=== PATIENT | male | born 1980 | race Caucasian/White ===

== ENCOUNTER 2018-08-12 20:47 | Emergency (ER) | payer OTHER ==
[2018-08-12 21:31] LABS: Absolute Lymphocytes (CBC) 0.4 K/uL (0.7-4.9); Absolute Monocytes 0.4 K/uL (0.1-1.3); Absolute Neutrophil 10.8 K/uL (1.8-8.0); Basophils % 0.2 % (0-1.3); Eosinophils % 0.1 % (0-4.4); Hematocrit 48.9 % (39.6-49.0); Lymphocytes % 3.1 % (15.3-44.8); MPV 8.5 fL (7.6-11.3); Monocytes % 3.8 % (3.3-12.3); RBC Red Blood Cell Count 5.71 M/uL (4.33-5.43)
[2018-08-12] MEDS ORDERED: NA CHLORIDE 0.9% 1,000 ML ONE (21:42)
[2018-08-12] MEDS ORDERED: ONDANSETRON 4 MG/2 ML VIAL ONE (21:42)
[2018-08-12] MEDS ORDERED: FAMOTIDINE 20 MG/2 ML VIAL IV ONE (21:42)
[2018-08-12] MEDS ORDERED: FENTANYL CITR 100 MCG/2 ML ONE (21:42)
[2018-08-12 21:50] LABS: Albumin 4.3 g/dL (3.4-5.0); Bilirubin Direct 0.3 mg/dL (0-0.2); Bilirubin Total 1.4 mg/dL (0.2-1.0); Potassium 3.7 mmol/L (3.5-5.1); Protein, Total 7.9 g/dL (6.4-8.2)
[2018-08-12 22:10] LABS: Blood Morphology Comment NOT SEEN (NOT SEEN); Platelet Estimate ADEQ; Urine White Blood Cell Casts OK
[2018-08-12 23:33] LABS: Barbiturates NEGATIVE (NEGATIVE); Benzodiazepines NEGATIVE (NEGATIVE); Cocaine NEGATIVE (NEGATIVE); METHAMPHETAM NEGATIVE (NEGATIVE); Methadone NEGATIVE (NEGATIVE); Opiates NEGATIVE (NEGATIVE); Phencyclidine NEGATIVE (NEGATIVE); THC Cannibis NEGATIVE (NEGATIVE)
[2018-08-12 23:41] LABS: Urine Blood NEGATIVE (NEG); Urine Glucose NEGATIVE (NEG); Urine Protein 1+ (NEG)
--- NOTE | 2018-08-13 00:39 | ER ---
Nurse's Notes [facility] Name: Vamsi Romero Age: 38 yrs Sex: Male : 1980 Arrival Date: 08/12/2018 Time: 20:50 Bed 14 Private MD: Diagnosis: Nausea and vomiting;Diarrhea, unspecified;Dehydration Presentation: 08/12 21:00 Presenting complaint: Patient states: I started having abdominal pain today around 10 jb4 am, then had body aches, nausea, vomiting, and diarrhea. 21:00 Transition of care: patient was not received from another setting of care. Onset of jb4 symptoms was August 12, 2018. Risk Assessment: Do you want to hurt yourself or someone else? Patient reports no desire to harm self or others. Initial Sepsis Screen: Does the patient meet any 2 criteria? HR > 90 bpm. Yes Does the patient have a suspected source of infection? Yes: Acute abdominal pain. Care prior to arrival: None. 21:00 Method Of Arrival: Ambulatory jb4 21:00 Acuity: ALEX 3 jb4 Historical: - Allergies: 21:00 Penicillins; jb4 21:00 Flumadine; jb4 - Home Meds: 21:00 Aciphex 20 mg Oral TbEC [Active]; jb4 - PMHx: 21:00 Hernia; stomach ulcers; jb4 - PSHx: 21:00 polyp removal; back; left shoulder; jb4 - Immunization history:: Adult Immunizations up to date. - Social history:: Smoking status: Patient/guardian denies using tobacco, Patient uses alcohol, but reports only rare drinking. - Ebola Screening: : No symptoms or risks identified at this time. Screenin:00 Abuse screen: Denies threats or abuse. Nutritional screening: No deficits noted. jb4 Tuberculosis screening: No symptoms or risk factors identified. Fall Risk None identified. Assessment: 21:00 General: Appears in no apparent distress. uncomfortable, Behavior is calm, cooperative, jb4 appropriate for age. Pain: Complains of pain in epigastric area, right upper quadrant and left upper quadrant Pain does not radiate. Pain currently is 10 out of 10 on a pain scale. Quality of pain is described as stabbing, Pain began 10 am. Neuro: Level of Consciousness is awake, alert, obeys commands, Oriented to person, place, time, situation. Cardiovascular: Patient's skin is warm and dry. Respiratory: Airway is patent Respiratory effort is even, unlabored, Respiratory pattern is regular, symmetrical. GI: Abdomen is flat, Bowel sounds present X 4 quads. Abd is soft X 4 quads Abd is non tender in umbilical area, suprapubic area, right lower quadrant and left lower quadrant Abdomen is tender to palpation in epigastric area, right upper quadrant and left upper quadrant Reports diarrhea, nausea, vomiting. : No signs and/or symptoms were reported regarding the genitourinary system. EENT: No signs and/or symptoms were reported regarding the EENT system. Derm: Skin is intact, Skin is pink, warm \T\ dry. Musculoskeletal: Circulation, motion, and sensation intact. 22:30 Reassessment: Patient appears in no apparent distress at this time. Patient and/or jb4 family updated on plan of care and expected duration. Pain level reassessed. Patient is alert, oriented x 3, equal unlabored respirations, skin warm/dry/pink. Patient states feeling better. 23:30 Reassessment: Patient appears in no apparent distress at this time. Patient and/or jb4 family updated on plan of care and expected duration. Pain level reassessed. Patient is alert, oriented x 3, equal unlabored respirations, skin warm/dry/pink. Patient states feeling better. 08/13 00:30 Reassessment: Patient appears in no apparent distress at this time. Patient and/or jb4 family updated on plan of care and expected duration. Pain level reassessed. Patient is alert, oriented x 3, equal unlabored respirations, skin warm/dry/pink. Patient states feeling better. Patient states symptoms have improved. 00:48 Reassessment: Pt waiting for IV fluids prior to discharge. jb4 01:42 Reassessment: Patient appears in no apparent distress at this time. Patient and/or jb4 family updated on plan of care and expected duration. Pain level reassessed. Patient is alert, oriented x 3, equal unlabored respirations, skin warm/dry/pink. Patient states feeling better. Patient states symptoms have improved. Vital Signs: 08/12 21:00 BP 99 / 88; Pulse 100; Resp 16; Temp 99.0(O); Pulse Ox 100% on R/A; Weight 79.38 kg jb4 (R); Height 6 ft. 1 in. (185.42 cm) (R); Pain 10/10; 22:30 BP 121 / 80; Pulse 93; Resp 16; Pulse Ox 98% on R/A; jb4 23:00 BP 121 / 80; Pulse 96; Resp 16; Pulse Ox 97% on R/A; jb4 08/13 00:30 BP 120 / 73; Pulse 89; Resp 16; Pulse Ox 99% on R/A; mt 01:42 BP 120 / 81; Pulse 76; Resp 16; Pulse Ox 98% on R/A; jb4 08/12 21:00 Body Mass Index 23.09 (79.38 kg, 185.42 cm) jb4 ED Course: 08/12 20:50 Patient arrived in ED. ss4 21:00 Vitaliy Stokes PA is PHCP. cp 21:00 Giorgi Porter MD is Attending Physician. cp 21:00 Arm band placed on right wrist. jb4 21:00 Patient has correct armband on for positive identification. Placed in gown. Bed in low jb4 position. Call light in reach. Side rails up X 1. Pulse ox on. NIBP on. 21:04 Vamsi Bass, RN is Primary Nurse. jb4 21:06 Triage completed. jb4 21:23 Inserted saline lock: 20 gauge in right antecubital area, using aseptic technique. mt Blood collected. 23:47 CT Abd/Pelvis - W/Contrast In Process Unspecified. EDMS 08/13 00:28 Patient drinking water, tolerated well. mt 01:44 No provider procedures requiring assistance completed. IV discontinued, intact, jb4 bleeding controlled, No redness/swelling at site. Administered Medications: 08/12 21:35 Drug: Zofran 4 mg Route: IVP; Site: right antecubital; jb4 22:00 Follow up: Response: No adverse reaction; Nausea is decreased jb4 21:37 Drug: Pepcid 20 mg Route: IVP; Site: right antecubital; jb4 22:00 Follow up: Response: No adverse reaction jb4 21:38 Drug: fentaNYL (PF) 25 mcg Route: IVP; Site: right antecubital; jb4 22:00 Follow up: Response: No adverse reaction; Pain is decreased jb4 21:39 Drug: NS 0.9% 1000 ml Route: IV; Rate: 1 bolus; Site: right antecubital; jb4 23:00 Follow up: Response: No adverse reaction; IV Status: Completed infusion; IV Intake: jb4 1000ml 08/13 00:42 Drug: NS 0.9% 1000 ml Route: IV; Rate: 1 bolus; Site: right antecubital; jb4 01:42 Follow up: Response: No adverse reaction; IV Status: Completed infusion; IV Intake: jb4 1000ml Intake: 08/12 23:00 IV: 1000ml; Total: 1000ml. jb4 08/13 01:42 IV: 1000ml; Total: 2000ml. jb4 Outcome: 00:37 Discharge ordered by MD. cp 01:44 Discharged to home ambulatory, with family. jb4 01:44 Condition: stable 01:44 Discharge instructions given to patient, family, Instructed on discharge instructions, follow up and referral plans. medication usage, Demonstrated understanding of instructions, follow-up care, medications, Prescriptions given X 2. 01:45 Patient left the ED. jb4 Signatures: Dispatcher [employer] EDMS Vitaliy Stokes PA PA cp Bryson, James, RN RN jb4 Adithya, Saira Pichardo mt4 Corrections: (The following items were deleted from the chart) 08/12 21:15 21:00 BP 99 / 8; Pulse 100bpm; Resp 16bpm; Pulse Ox 100% RA; Temp 99.0F Oral; 79.38 kg jb4 Reported; Height 6 ft. 1 in. Reported; BMI: 23.0; Pain 10/10; jb4
--- NOTE | 2018-08-13 00:39 | EDPHYS ---
Physician Documentation [facility] Name: Vamsi Romero Age: 38 yrs Sex: Male : 1980 Arrival Date: 08/12/2018 Time: 20:50 Bed 14 Private MD: ED Physician Giorgi Porter HPI: 08/12 21:15 This 38 yrs old Male presents to ER via Ambulatory with complaints of cp Abdominal Pain, Rash. 21:15 The patient presents with abdominal pain that is diffuse. Onset: The symptoms/episode cp began/occurred this morning. Associated signs and symptoms: Pertinent positives: nausea, vomiting, and diarrhea, Pertinent negatives: blood in stools, chest pain, constipation, dysuria, fever, testicular pain, vomiting blood. Severity of pain: in the emergency department the pain is unchanged despite home interventions. Historical: - Allergies: 21:00 Penicillins; jb4 21:00 Flumadine; jb4 - Home Meds: 21:00 Aciphex 20 mg Oral TbEC [Active]; jb4 - PMHx: 21:00 Hernia; stomach ulcers; jb4 - PSHx: 21:00 polyp removal; back; left shoulder; jb4 - Immunization history:: Adult Immunizations up to date. - Social history:: Smoking status: Patient/guardian denies using tobacco, Patient uses alcohol, but reports only rare drinking. - Ebola Screening: : No symptoms or risks identified at this time. ROS: 21:25 Constitutional: Negative for body aches, chills, fever. cp 21:25 Eyes: Negative for injury, pain, redness, and discharge. cp 21:25 ENT: Negative for drainage from ear(s), ear pain, sore throat, difficulty swallowing, difficulty handling secretions. 21:25 Cardiovascular: Negative for chest pain. 21:25 Respiratory: Negative for cough, shortness of breath, wheezing. 21:25 Abdomen/GI: Positive for abdominal pain, nausea, vomiting, and diarrhea, Negative for constipation, hematemesis, black/tarry stool, rectal bleeding. 21:25 Skin: Negative for rash. 21:25 Neuro: Negative for altered mental status, headache, weakness. 21:25 All other systems are negative. Exam: 21:30 Constitutional: The patient appears in no acute distress, alert, awake, cp non-diaphoretic, non-toxic, well developed, well nourished. 21:30 Head/Face: Normocephalic, atraumatic. cp 21:30 Eyes: Periorbital structures: appear normal, Conjunctiva: normal, no exudate, no injection, Sclera: no appreciated abnormality, Lids and lashes: appear normal, bilaterally. 21:30 ENT: External ear(s): are unremarkable, Ear canal(s): are normal, clear, TM's: bulging, is not appreciated, bilaterally, dullness, bilaterally, erythema, is not appreciated, bilaterally, Nose: is normal, Mouth: Lips: moist, Oral mucosa: pink and intact, moist, Posterior pharynx: is normal, airway is patent, no erythema, no exudate. 21:30 Neck: ROM/movement: is normal, is supple, without pain, no range of motions limitations, no nuchal rigidity. 21:30 Chest/axilla: Inspection: normal, Palpation: is normal, no crepitus, no tenderness. 21:30 Cardiovascular: Rate: tachycardic, Rhythm: regular. 21:30 Respiratory: the patient does not display signs of respiratory distress, Respirations: normal, no use of accessory muscles, no retractions, no splinting, no tachypnea, labored breathing, is not present, Breath sounds: are clear throughout, no decreased breath sounds, no stridor, no wheezing. 21:30 Abdomen/GI: Inspection: abdomen appears normal, Bowel sounds: active, all quadrants, Palpation: soft, in all quadrants, moderate abdominal tenderness, in all quadrants, rebound tenderness, is not appreciated, voluntary guarding, is elicited in all quadrants, involuntary guarding, is not appreciated. 21:30 Back: pain, is absent, ROM is normal. 21:30 Skin: no rash present. 21:30 Neuro: Orientation: to person, place \T\ time. Mentation: is normal. Vital Signs: 21:00 BP 99 / 88; Pulse 100; Resp 16; Temp 99.0(O); Pulse Ox 100% on R/A; Weight 79.38 kg jb4 (R); Height 6 ft. 1 in. (185.42 cm) (R); Pain 10/10; 22:30 BP 121 / 80; Pulse 93; Resp 16; Pulse Ox 98% on R/A; jb4 23:00 BP 121 / 80; Pulse 96; Resp 16; Pulse Ox 97% on R/A; [facility] 08/13 00:30 BP 120 / 73; Pulse 89; Resp 16; Pulse Ox 99% on R/A; wi 01:42 BP 120 / 81; Pulse 76; Resp 16; Pulse Ox 98% on R/A; [facility] 08/12 21:00 Body Mass Index 23.09 (79.38 kg, 185.42 cm) [facility] MDM: 08/12 21:00 Patient medically screened. 08/13 00:00 Differential diagnosis: appendicitis, bowel obstruction, diverticulitis, gastritis, GI cp Bleed, pancreatitis, Peptic Ulcer Disease, Perf. Duodenal Ulcer, Perf. Gastric Ulcer. 00:35 Data reviewed: vital signs, nurses notes, lab test result(s), radiologic studies, CT cp scan, and as a result, I will discharge patient. 00:35 Counseling: I had a detailed discussion with the patient and/or guardian regarding: the cp historical points, exam findings, and any diagnostic results supporting the discharge/admit diagnosis, lab results, radiology results, to return to the emergency department if symptoms worsen or persist or if there are any questions or concerns that arise at home. Response to treatment: the patient's symptoms have markedly improved after treatment, and as a result, I will discharge patient. 08/12 21:11 Order name: Basic Metabolic Panel; Complete Time: 23:10 08/12 21:11 Order name: CBC with Diff; Complete Time: 23:10 08/12 21:11 Order name: Creatinine for Radiology; Complete Time: 23:10 08/12 21:11 Order name: Hepatic Function; Complete Time: 23:10 08/13 00:38 Interpretation: Normal except: AST 82; ALT 171; BILIT 1.4; BILID 0.3; GLOB 3.6. 08/12 21:11 Order name: Lipase; Complete Time: 23:10 08/12 21:15 Order name: UDS; Complete Time: 00:07 08/12 21:15 Order name: Magnesium; Complete Time: 23:10 08/12 21:39 Order name: CBC Smear Scan; Complete Time: 23:10 EDMS 08/12 21:39 Order name: CT Abd/Pelvis - W/Contrast 08/12 23:21 Order name: Urine Dipstick--Ancillary (enter results); Complete Time: 00:07 mw2 08/12 21:11 Order name: IV Saline Lock; Complete Time: 21:24 cp 08/12 21:11 Order name: Labs collected and sent; Complete Time: 21:24 cp 08/12 21:11 Order name: Urine Dipstick-Ancillary (obtain specimen); Complete Time: 00:28 cp 08/13 00:25 Order name: PO challenge; Complete Time: 00:27 cp Administered Medications: 08/12 21:35 Drug: Zofran 4 mg Route: IVP; Site: right antecubital; jb4 22:00 Follow up: Response: No adverse reaction; Nausea is decreased jb4 21:37 Drug: Pepcid 20 mg Route: IVP; Site: right antecubital; jb4 22:00 Follow up: Response: No adverse reaction jb4 21:38 Drug: fentaNYL (PF) 25 mcg Route: IVP; Site: right antecubital; jb4 22:00 Follow up: Response: No adverse reaction; Pain is decreased jb4 21:39 Drug: NS 0.9% 1000 ml Route: IV; Rate: 1 bolus; Site: right antecubital; jb4 23:00 Follow up: Response: No adverse reaction; IV Status: Completed infusion; IV Intake: jb4 1000ml 08/13 00:42 Drug: NS 0.9% 1000 ml Route: IV; Rate: 1 bolus; Site: right antecubital; jb4 01:42 Follow up: Response: No adverse reaction; IV Status: Completed infusion; IV Intake: jb4 1000ml Disposition: 19:41 Co-signature as Attending Physician, Giorgi Porter MD. Disposition: 08/13/18 00:37 Discharged to Home. Impression: Nausea and vomiting, Diarrhea, unspecified, Dehydration. - Condition is Stable. - Discharge Instructions: Food Choices to Help Relieve Diarrhea, Adult, Dehydration, Adult, Diarrhea, Adult, Nausea and Vomiting, Adult. - Prescriptions for Bentyl 20 mg Oral Tablet - take 1 tablet by ORAL route every 6 hours As needed; 20 tablet. Zofran 4 mg Oral Tablet - take 1 tablet by ORAL route every 12 hours As needed; 20 tablet. - Medication Reconciliation Form, Thank You Letter, Antibiotic Education, Prescription Opioid Use form. - Follow up: Private Physician; When: 2 - 3 days; Reason: Recheck today's complaints. - Problem is new. - Symptoms have improved. Signatures: Dispatcher [employer] EDMS Vitaliy Stokes PA PA cp Vamsi Bass RN RN jb4 Giorgi Porter MD MD gs Corrections: (The following items were deleted from the chart) 00:39 00:37 08/13/2018 00:37 Discharged to Home. Impression: Nausea and vomiting; Diarrhea, cp unspecified. Condition is Stable. Forms are Medication Reconciliation Form, Thank You Letter, Antibiotic Education, Prescription Opioid Use. Follow up: Private Physician; When: 2 - 3 days; Reason: Recheck today's complaints. Problem is new. Symptoms have improved. cp 01:45 00:39 08/13/2018 00:37 Discharged to Home. Impression: Nausea and vomiting; Diarrhea, jb4 unspecified; Dehydration. Condition is Stable. Forms are Medication Reconciliation Form, Thank You Letter, Antibiotic Education, Prescription Opioid Use. Follow up: Private Physician; When: 2 - 3 days; Reason: Recheck today's complaints. Problem is new. Symptoms have improved. cp
[2018-08-13] MEDS ORDERED: NA CHLORIDE 0.9% 1,000 ML ONE (00:44)
--- NOTE | 2018-08-13 10:16 | RAD REPORT ---
EXAM DESCRIPTION: CT - Abdomen Pelvis W Contrast - 08/12/2018 11:45 pm CLINICAL HISTORY: 38 years Male diarrhea;Abd pain;Nausea / vomiting COMPARISON: None TECHNIQUE: Images were obtained in axial, sagittal, and coronal planes. Intravenous contrast was adm inistered. Arterial and venous phase imaging was performed. This exam was performed according to our departmental dose-optimization program which includes use of Automated Exposure Control, adjustment of the mA and/or kV according to patient size and/or use of i terative reconstruction technique. FINDINGS: Appendix within normal limits. No bowel obstruction, perforation, or inflammation. Decreased attenuation involving the liver consistent with fatty change. No abnormality involving the spleen, pancreas, gallbladder, or adrenal glands bilaterally. No obstructing renal calcifications bilaterally. No hydronephrosis bilaterally. Unremarkable bladder. No renal parenchymal abnormalities bilaterally. No abnormality abdominal aorta or portal vein. No adenopathy or abnormal fluid collections seen. No abnormality lower lungs bilaterally. No acute osseous abnormality. Postsurgical changes L5-S1. IMPRESSION: No acute intra-abdominal abnormality. Fatty change involving the liver. Electronically signed by: Kim Addison MD 08/13/2018 12:00 AM CDT Due to temporary technical issues with the PACS/Fluency reporting system, reports are being signed by the in house radiologist as a courtesy to ensure prompt reporting. The interpreting radiologist is f ully responsible for the content of the report.
== END 2018-08-13 01:45 | disposition home or self-care (01) ==
LOC: ER 20:47
DX: R11.2 Nausea with vomiting, unspecified (principal); R19.7 Diarrhea, unspecified; E86.0 Dehydration; Z88.0 Allergy status to penicillin; Z88.8 Allergy status to other drugs, medicaments and biological substances
CPT/HCPCS: 36415; 74177; 80048; 80076; 80307; 81003; 83690; 83735; 85025; 96361; 96374; 96375; 99284; J2405; J3010; J7030; Q9967